=== PATIENT | female | born 1945 | race Caucasian/White ===

== ENCOUNTER 2017-12-28 15:09 | Emergency (ER) | payer MEDICARE, OTHER ==
[~2017-12-28] VITALS: Ht 160 cm; Wt 58.0 kg
[2017-12-28] MEDS ORDERED: morphine 4 MG/ML inj SYRINge IV ONE (15:20)
[2017-12-28] MEDS ORDERED: nitroGLYCERIN 0.4mg SUBLingual tab SL PRN (15:20)
[2017-12-28 15:41] LABS: BASOPHILS # (AUTO) 0.1 X10'3 (0-0.2); BASOPHILS % (AUTO) 1.9 % (0-1); EOSINOPHILS # (AUTO) 0.1 X10'3 (0-0.9); EOSINOPHILS % (AUTO) 2.8 % (0-6); HEMOGLOBIN 14.6 g/dl (12.0-16.0); LYMPHOCYTES # (AUTO) 2.3 X10'3 (1.1-4.8); LYMPHOCYTES % (AUTO) 46.3 % (21-51); MEAN CORPUSCULAR HEMOGLOBIN 31.5 PG (27.0-31.0); MEAN CORPUSCULAR HGB CONC 34.7 % (33.0-36.5); MEAN CORPUSCULAR VOLUME 90.8 FL (78-98); MEAN PLATELET VOLUME 7.4 FL (7.4-10.4); MONOCYTES # (AUTO) 0.5 X10'3 (0-0.9); MONOCYTES % (AUTO) 10.5 % (2-12); NEUTROPHILS # (AUTO) 1.9 X10'3 (1.8-7.7); NEUTROPHILS % (AUTO) 38.5 % (42-75); PLATELET COUNT 265 X10'3 (140-440); RED BLOOD COUNT 4.63 X10'6 (4.20-5.60); RED CELL DISTRIBUTION WIDTH 13.1 % (11.5-14.5); WHITE BLOOD COUNT 4.9 X10'3 (4.5-11.0)
[2017-12-28 16:04] LABS: ALANINE AMINOTRANSFERASE 21 U/L (12-78); ALBUMIN 4.2 G/DL (3.4-5.0); ALBUMIN/GLOBULIN RATIO 1.1 (1.1-1.5); ALKALINE PHOSPHATASE 73 IU/L (46-116); ANION GAP 9 (8-16); ASPARTATE AMINO TRANSFERASE 20 U/L (10-37); BILIRUBIN,TOTAL 0.3 MG/DL (0.1-1.0); BLOOD UREA NITROGEN 9 MG/DL (7-18); BUN/CREATININE RATIO 13.4 (6.6-38.0); CALCIUM 10.3 MG/DL (8.5-10.1); CHLORIDE 93 MMOL/L (99-107); CREATININE 0.67 MG/DL (0.40-0.90); GLUCOSE 99 MG/DL (70-104); SODIUM 131 MMOL/L (135-145); TOTAL CARBON DIOXIDE 28.9 MMOL/L (24-32); TOTAL PROTEIN 7.9 G/DL (6.4-8.2); eGFR 87 ML/MIN
[2017-12-28] MEDS ORDERED: normal saline 1000ML IV soln IVB ONE (16:35)
[2017-12-28] MEDS ORDERED: NITR0.4T51 SL (16:46)
[2017-12-28] MEDS: ondansetron/PF 4mg/2ml inj IV ONE ×2 (17:01→17:03)
[2017-12-28] MEDS: famotidine/PF 10 mg/ml inj IV ONE ×2 (17:01→17:03)
[2017-12-28 17:50] VITALS: BP 171/91
== END 2017-12-28 17:51 | disposition home or self-care (01) ==
LOC: ER 15:09
DX: I20.9 Angina pectoris, unspecified (principal); R10.13 Epigastric pain; R07.89 Other chest pain; I48.91 Unspecified atrial fibrillation; I25.2 Old myocardial infarction; M81.0 Age-related osteoporosis without current pathological fracture; Z88.8 Allergy status to other drugs, medicaments and biological substances; Z88.6 Allergy status to analgesic agent; Z88.5 Allergy status to narcotic agent
CPT/HCPCS: 36415; 71045; 80053; 83880; 84484; 85025; 85610; 93005; 96374; 99285; J2270; J3490; J7030; J2405

== ENCOUNTER 2021-09-22 10:29 | Emergency (ER) | payer MEDICARE, OTHER ==
[~2021-09-22] VITALS: Ht 160 cm; Wt 42.7 kg
[2021-09-22] MEDS ORDERED: LIDOcaine 5% patch TP STA (11:41)
[2021-09-22] MEDS ORDERED: BUPIVAcaine/PF 7.5 mg/ml (0.75%) 30ml vial IJ ONE (11:45)
[2021-09-22 12:11] VITALS: BP 163/96
== END 2021-09-22 12:27 | disposition home or self-care (01) ==
LOC: ER 10:30
DX: G89.29 Other chronic pain (principal); M54.50 Low back pain, unspecified; M81.0 Age-related osteoporosis without current pathological fracture; I48.91 Unspecified atrial fibrillation; I25.2 Old myocardial infarction; Z98.82 Breast implant status; Z88.8 Allergy status to other drugs, medicaments and biological substances
CPT/HCPCS: 20552; 99284

== ENCOUNTER 2021-12-19 14:24 | Inpatient (IN) | payer MEDICARE, OTHER ==
[~2021-12-19] VITALS: Ht 160 cm; Wt 40.9 kg
[2021-12-19 15:20] LABS: BASOPHILS # (AUTO) 0.1 X10'3 (0-0.2); BASOPHILS % (AUTO) 0.9 % (0-1); EOSINOPHILS % (AUTO) 0.3 % (0-6); HEMATOCRIT 40.8 % (35.0-45.0); HEMOGLOBIN 13.9 g/dl (12.0-16.0); LYMPHOCYTES # (AUTO) 1.6 X10'3 (1.1-4.8); LYMPHOCYTES % (AUTO) 26.7 % (21-51); MEAN CORPUSCULAR HEMOGLOBIN 30.2 PG (27.0-31.0); MEAN CORPUSCULAR HGB CONC 34.1 g/dL (33.0-36.5); MEAN CORPUSCULAR VOLUME 88.8 FL (78-98); MEAN PLATELET VOLUME 8.3 FL (7.4-10.4); MONOCYTES # (AUTO) 0.6 X10'3 (0-0.9); MONOCYTES % (AUTO) 9.8 % (2-12); NEUTROPHILS # (AUTO) 3.8 X10'3 (1.8-7.7); NEUTROPHILS % (AUTO) 62.3 % (42-75); PLATELET COUNT 288 X10'3 (140-440); RED CELL DISTRIBUTION WIDTH 14.2 % (11.5-14.5); WHITE BLOOD COUNT 6.1 X10'3 (4.5-11.0)
[2021-12-19] MEDS ORDERED: acetaminophen 325mg tablet PO ONE (15:25)
[2021-12-19 15:30] LABS: ALANINE AMINOTRANSFERASE 35 U/L (12-78); ALBUMIN/GLOBULIN RATIO 1.2 (1.1-1.5); ALKALINE PHOSPHATASE 90 IU/L (46-116); ANION GAP 11 (8-16); ASPARTATE AMINO TRANSFERASE 22 U/L (10-37); BILIRUBIN,TOTAL 0.6 MG/DL (0.1-1.0); BLOOD UREA NITROGEN 14 MG/DL (7-18); BUN/CREATININE RATIO 16.9 (6.6-38.0); CALCIUM 9.3 MG/DL (8.5-10.1); CHLORIDE 94 MMOL/L (99-107); CREATININE 0.83 MG/DL (0.40-0.90); GLUCOSE 120 MG/DL (70-104); SODIUM 131 MMOL/L (135-145); TOTAL CARBON DIOXIDE 26.4 MMOL/L (24-32); TOTAL PROTEIN 7.4 G/DL (6.4-8.2); eGFR 67 ML/MIN
[2021-12-19 15:31] LABS: D-DIMER 0.88 MG/L FEU (0-0.50)
[2021-12-19] MEDS ORDERED: furosemide 10 MG/1 ML 10ml inj IV ONE (15:45)
[2021-12-19] MEDS ORDERED: potassium CL 10mEq/100ml bag 100 ML IV PRN (16:05)
[2021-12-19] MEDS ORDERED: ondansetron/PF 4mg/2ml inj IV PRN (16:05)
[2021-12-19] MEDS ORDERED: magnesium 4gm in 100ml NS 100 ML IV PRN (16:05)
[2021-12-19] MEDS ORDERED: mag hydrox/Alum hydrox/simeth 30ml oral suspension PO PRN (16:05)
[2021-12-19] MEDS ORDERED: magnesium Cl slow-release 64mg tablet PO PRN (16:05)
[2021-12-19] MEDS ORDERED: PERFLUTREN PROTEIN-A MICROSPHR (Optison) 0.22 MG/ML 3ML VIAL IV ONE (16:05)
[2021-12-19] MEDS ORDERED: magnesium hydroxide 30ml (MOM) UD suspension PO PRN (16:05)
[2021-12-19] MEDS ORDERED: acetaminophen 325mg tablet PO PRN (16:05)
[2021-12-19] MEDS ORDERED: magnesium 2GM in 50ml NS 50 ML IV PRN (16:05)
[2021-12-19 17:41] LABS: POTASSIUM 3.9 MMOL/L (3.5-5.1)
[2021-12-19] MEDS ORDERED: ISOT20CA3 PO (18:14)
[2021-12-19] MEDS ORDERED: DIAZ2TAB3 PO (18:17)
[2021-12-19] MEDS ORDERED: NITR4.9S4 PO (18:17)
[2021-12-19] MEDS ORDERED: APIX5TAB3 PO (18:17)
[2021-12-19] MEDS: metoprolol tartrate 1mg/ml inj IV SCH ×3 (18:20→19:46)
[2021-12-19] MEDS ORDERED: GABA-581 PO (18:24)
[2021-12-19] MEDS ORDERED: TRAM50TA2 PO (18:25)
[2021-12-19] MEDS ORDERED: DIAZ10TA4 PO (18:26)
--- NOTE | 2021-12-19 19:23 | NUR ---
assisting primary RN with pt care, pt stated she is "no code...DNR...I have paperwork", pt is GCS 15, alert and oriented x3, Dr Lafleur aware and talked with pt regarding code status. pt also stated she takes levothyroxine from [facility] in [place] [id number] [phone]
[2021-12-19] MEDS ORDERED: LEVO88CA4 PO (19:36)
[2021-12-19] MEDS: apixaban 5mg tablet PO SCH (19:45)
[2021-12-19] MEDS: docusate sod 100mg capsule PO SCH (19:45)
[2021-12-19] MEDS: furosemide 10 MG/1 ML 10ml inj IV SCH (19:46)
[2021-12-19] MEDS: K and/or MAG REPLACEMENT MC SCH (20:00)
[2021-12-19] MEDS: metoprolol tartrate 50mg tablet PO SCH (20:01)
[2021-12-19] MEDS ORDERED: diazepam 5mg tablet PO ONE (20:10)
[2021-12-19] MEDS ORDERED: traMADol 50MG tablet PO ONE (20:10)
[2021-12-19 22:00] VITALS: BP 123/89
[2021-12-20 02:00] VITALS: BP 118/78
[2021-12-20 06:00] VITALS: BP 108/76
--- NOTE | 2021-12-20 06:30 | NUR ---
Patient in room PCU 3024. I have received report from KAYCE Paulino and had the opportunity to ask questions and assume patient care.
[2021-12-20 06:38] LABS: BASOPHILS # (AUTO) 0.1 X10'3 (0-0.2); BASOPHILS % (AUTO) 1.1 % (0-1); EOSINOPHILS # (AUTO) 0.1 X10'3 (0-0.9); EOSINOPHILS % (AUTO) 1.5 % (0-6); HEMATOCRIT 37.7 % (35.0-45.0); HEMOGLOBIN 13.1 g/dl (12.0-16.0); LYMPHOCYTES # (AUTO) 1.7 X10'3 (1.1-4.8); MEAN CORPUSCULAR HEMOGLOBIN 30.2 PG (27.0-31.0); MEAN CORPUSCULAR HGB CONC 34.8 g/dL (33.0-36.5); MEAN CORPUSCULAR VOLUME 86.9 FL (78-98); MEAN PLATELET VOLUME 8.2 FL (7.4-10.4); MONOCYTES # (AUTO) 0.6 X10'3 (0-0.9); MONOCYTES % (AUTO) 13.2 % (2-12); NEUTROPHILS # (AUTO) 2.3 X10'3 (1.8-7.7); NEUTROPHILS % (AUTO) 48.2 % (42-75); PLATELET COUNT 248 X10'3 (140-440); RED BLOOD COUNT 4.34 X10'6 (4.20-5.60); RED CELL DISTRIBUTION WIDTH 13.7 % (11.5-14.5); WHITE BLOOD COUNT 4.8 X10'3 (4.5-11.0)
--- NOTE | 2021-12-20 06:43 | NUR ---
Problems reprioritized. Patient report given, questions answered & plan of care reviewed with zachary.
[2021-12-20 07:03] LABS: ALANINE AMINOTRANSFERASE 30 U/L (12-78); ALBUMIN 3.3 G/DL (3.4-5.0); ALBUMIN/GLOBULIN RATIO 1.1 (1.1-1.5); ALKALINE PHOSPHATASE 75 IU/L (46-116); ANION GAP 6 (8-16); ASPARTATE AMINO TRANSFERASE 25 U/L (10-37); BILIRUBIN,TOTAL 0.5 MG/DL (0.1-1.0); BLOOD UREA NITROGEN 12 MG/DL (7-18); BUN/CREATININE RATIO 14.6 (6.6-38.0); CALCIUM 8.5 MG/DL (8.5-10.1); CHLORIDE 97 MMOL/L (99-107); CREATININE 0.82 MG/DL (0.40-0.90); GLUCOSE 86 MG/DL (70-104); MAGNESIUM 1.8 MG/DL (1.5-2.4); POTASSIUM 3.5 MMOL/L (3.5-5.1); SODIUM 135 MMOL/L (135-145); TOTAL CARBON DIOXIDE 31.7 MMOL/L (24-32); TOTAL PROTEIN 6.4 G/DL (6.4-8.2); eGFR 68 ML/MIN
[2021-12-20] MEDS: K and/or MAG REPLACEMENT MC SCH ×2 (08:00→20:00)
[2021-12-20] MEDS: metoprolol tartrate 50mg tablet PO SCH (08:42)
[2021-12-20] MEDS: docusate sod 100mg capsule PO SCH ×2 (08:42→20:16)
[2021-12-20] MEDS: apixaban 5mg tablet PO SCH ×2 (08:42→20:16)
[2021-12-20] MEDS: furosemide 10 MG/1 ML 10ml inj IV SCH ×2 (08:43→20:18)
[2021-12-20 11:00] VITALS: BP 130/83
[2021-12-20] MEDS ORDERED: NITROGLYCERIN PO PRN (11:20)
--- NOTE | 2021-12-20 12:23 | NUR ---
Malnutrition consult: Pt reports 2-13 lb wt loss with decreased appetite per malnutrition risk screen with RN. Most recent documented wt in EMR is 42.73 kg 09/22, current wt is 40.91 kg though no documentation of how either wt was obtained. If weights are accurate this would be non-significant wt loss of 4% in three months. Pending documentation of PO intake on CHO controlled diet. TC to RN with recommendation for liberalizing to regular diet given pt with no PMH of DM or an A1c per EMR. Pt with no documented significant decrease in muscle strength or edema. Per physician notes pt appears well developed and denies N/V. Pt currently lacks a minimum of two criteria for malnutrition. Will continue to follow. Addendum: 12/20/21 at [address] Amended: Links added.
[2021-12-20 14:51] LABS: CHOLESTEROL 168 MG/DL (0-200); HDL CHOLESTEROL 56 MG/DL (35-60); LDL CHOLESTEROL 99 MG/DL (50-100); TRIGLYCERIDES 38 MG/DL (20-135)
[2021-12-20 15:00] VITALS: BP 109/65
[2021-12-20] MEDS ORDERED: CARV6.253 PO (15:46)
[2021-12-20 18:00] VITALS: BP 130/86
--- NOTE | 2021-12-20 18:36 | NUR ---
Problems reprioritized. Patient report given, questions answered & plan of care reviewed with KELLY Palmer. Addendum: 12/20/21 at 1838 by Jane Frye RN Problems reprioritized. Patient report given, questions answered & plan of care reviewed with KELLY Matthews.
[2021-12-20] MEDS: diazepam 5mg tablet PO SCH (20:17)
[2021-12-20] MEDS: traMADol 50MG tablet PO SCH (20:21)
[2021-12-20] MEDS: carVEDilol 3.125mg tablet PO SCH (20:22)
[2021-12-20] MEDS ORDERED: GABAPENTIN 600 MG PO SCH (21:00)
[2021-12-20 22:00] VITALS: BP 106/58
[2021-12-20] MEDS: gabapentin 100mg capsule PO SCH (22:34)
[2021-12-21 06:00] VITALS: BP 111/64
[2021-12-21 07:05] LABS: BASOPHILS # (AUTO) 0.1 X10'3 (0-0.2); BASOPHILS % (AUTO) 1.1 % (0-1); EOSINOPHILS # (AUTO) 0.1 X10'3 (0-0.9); EOSINOPHILS % (AUTO) 1.2 % (0-6); HEMATOCRIT 39.8 % (35.0-45.0); HEMOGLOBIN 13.4 g/dl (12.0-16.0); LYMPHOCYTES # (AUTO) 1.2 X10'3 (1.1-4.8); LYMPHOCYTES % (AUTO) 19.2 % (21-51); MEAN CORPUSCULAR HEMOGLOBIN 29.6 PG (27.0-31.0); MEAN CORPUSCULAR HGB CONC 33.6 g/dL (33.0-36.5); MEAN CORPUSCULAR VOLUME 88.2 FL (78-98); MEAN PLATELET VOLUME 8.7 FL (7.4-10.4); MONOCYTES # (AUTO) 0.6 X10'3 (0-0.9); MONOCYTES % (AUTO) 9.9 % (2-12); NEUTROPHILS # (AUTO) 4.5 X10'3 (1.8-7.7); NEUTROPHILS % (AUTO) 68.6 % (42-75); PLATELET COUNT 260 X10'3 (140-440); RED BLOOD COUNT 4.51 X10'6 (4.20-5.60); RED CELL DISTRIBUTION WIDTH 13.7 % (11.5-14.5); WHITE BLOOD COUNT 6.5 X10'3 (4.5-11.0)
[2021-12-21 07:19] LABS: ALANINE AMINOTRANSFERASE 29 U/L (12-78); ALBUMIN 3.5 G/DL (3.4-5.0); ALBUMIN/GLOBULIN RATIO 1.2 (1.1-1.5); ALKALINE PHOSPHATASE 74 IU/L (46-116); ANION GAP 12 (8-16); ASPARTATE AMINO TRANSFERASE 22 U/L (10-37); BILIRUBIN,TOTAL 0.5 MG/DL (0.1-1.0); BLOOD UREA NITROGEN 17 MG/DL (7-18); BUN/CREATININE RATIO 20.5 (6.6-38.0); CALCIUM 8.6 MG/DL (8.5-10.1); CHLORIDE 96 MMOL/L (99-107); CREATININE 0.83 MG/DL (0.40-0.90); GLUCOSE 81 MG/DL (70-104); SODIUM 137 MMOL/L (135-145); TOTAL CARBON DIOXIDE 29.2 MMOL/L (24-32); TOTAL PROTEIN 6.5 G/DL (6.4-8.2); eGFR 67 ML/MIN
[2021-12-21] MEDS: docusate sod 100mg capsule PO SCH ×2 (07:48→20:38)
[2021-12-21] MEDS: gabapentin 100mg capsule PO SCH ×3 (07:48→20:40)
[2021-12-21] MEDS: carVEDilol 3.125mg tablet PO SCH ×2 (07:49→20:40)
[2021-12-21] MEDS: apixaban 5mg tablet PO SCH ×2 (07:49→20:40)
[2021-12-21] MEDS: losartan 25mg tablet PO SCH (07:50)
[2021-12-21] MEDS: levoTHYROXINE 88mcg tablet PO SCH (07:50)
[2021-12-21] MEDS: furosemide 10 MG/1 ML 10ml inj IV SCH ×2 (07:50→21:23)
[2021-12-21] MEDS: POTASSIUM BICARB 20meq eff tab 20 MEQ TABLET.EFF PO PRN ×5 (07:51→17:50)
[2021-12-21] MEDS: aspirin 81mg tab.chew PO SCH (07:52)
[2021-12-21] MEDS: K and/or MAG REPLACEMENT MC SCH ×2 (08:04→20:00)
[2021-12-21] MEDS: diazepam 2mg tablet PO SCH (10:59)
[2021-12-21 11:00] VITALS: BP 110/72
[2021-12-21 15:00] VITALS: BP 97/60
[2021-12-21 18:00] VITALS: BP 132/83
--- NOTE | 2021-12-21 18:14 | NUR ---
Patient in room PCU 3024. I have received report from Eufemia MENDOZA and had the opportunity to ask questions and assume patient care.
[2021-12-21] MEDS: diazepam 5mg tablet PO SCH (20:40)
[2021-12-21] MEDS: traMADol 50MG tablet PO SCH (20:42)
[2021-12-21 22:00] VITALS: BP 111/68
[2021-12-22 02:00] VITALS: BP 79/56
[2021-12-22 06:00] VITALS: BP 90/48
--- NOTE | 2021-12-22 06:44 | NUR ---
Problems reprioritized. Patient report given, questions answered & plan of care reviewed with Tracee MENDOZA.
--- NOTE | 2021-12-22 06:48 | NUR ---
REVIEWED [employer] ASSESSMENT AND IN AGREEMENT.
[2021-12-22 07:27] LABS: BASOPHILS # (AUTO) 0.1 X10'3 (0-0.2); BASOPHILS % (AUTO) 1.3 % (0-1); EOSINOPHILS # (AUTO) 0.1 X10'3 (0-0.9); EOSINOPHILS % (AUTO) 2.2 % (0-6); HEMATOCRIT 40.3 % (35.0-45.0); HEMOGLOBIN 13.8 g/dl (12.0-16.0); LYMPHOCYTES % (AUTO) 34.6 % (21-51); MEAN CORPUSCULAR HEMOGLOBIN 30.1 PG (27.0-31.0); MEAN CORPUSCULAR HGB CONC 34.1 g/dL (33.0-36.5); MEAN CORPUSCULAR VOLUME 88.3 FL (78-98); MEAN PLATELET VOLUME 8.5 FL (7.4-10.4); MONOCYTES # (AUTO) 0.7 X10'3 (0-0.9); MONOCYTES % (AUTO) 11.8 % (2-12); NEUTROPHILS # (AUTO) 2.9 X10'3 (1.8-7.7); NEUTROPHILS % (AUTO) 50.1 % (42-75); PLATELET COUNT 248 X10'3 (140-440); RED BLOOD COUNT 4.57 X10'6 (4.20-5.60); RED CELL DISTRIBUTION WIDTH 13.6 % (11.5-14.5); WHITE BLOOD COUNT 5.8 X10'3 (4.5-11.0)
[2021-12-22 07:48] LABS: ALANINE AMINOTRANSFERASE 23 U/L (12-78); ALBUMIN 3.6 G/DL (3.4-5.0); ALBUMIN/GLOBULIN RATIO 1.2 (1.1-1.5); ALKALINE PHOSPHATASE 72 IU/L (46-116); ANION GAP 11 (8-16); ASPARTATE AMINO TRANSFERASE 19 U/L (10-37); BILIRUBIN,TOTAL 0.5 MG/DL (0.1-1.0); BLOOD UREA NITROGEN 19 MG/DL (7-18); BUN/CREATININE RATIO 21.8 (6.6-38.0); CALCIUM 9.1 MG/DL (8.5-10.1); CHLORIDE 93 MMOL/L (99-107); CREATININE 0.87 MG/DL (0.40-0.90); GLUCOSE 76 MG/DL (70-104); SODIUM 138 MMOL/L (135-145); TOTAL CARBON DIOXIDE 33.6 MMOL/L (24-32); TOTAL PROTEIN 6.6 G/DL (6.4-8.2); eGFR 64 ML/MIN
[2021-12-22] MEDS: K and/or MAG REPLACEMENT MC SCH (08:00)
[2021-12-22] MEDS: gabapentin 100mg capsule PO SCH ×2 (08:00→13:00)
[2021-12-22] MEDS ORDERED: ISOTRETINOIN PO SCH (08:00)
[2021-12-22] MEDS: losartan 25mg tablet PO SCH ×2 (08:00→09:18)
[2021-12-22 08:50] VITALS: BP 107/57
[2021-12-22] MEDS: apixaban 5mg tablet PO SCH (09:07)
[2021-12-22] MEDS: carVEDilol 3.125mg tablet PO SCH (09:07)
[2021-12-22] MEDS: diazepam 2mg tablet PO SCH (09:08)
[2021-12-22] MEDS: aspirin 81mg tab.chew PO SCH (09:08)
[2021-12-22] MEDS: docusate sod 100mg capsule PO SCH (09:08)
[2021-12-22] MEDS: furosemide 10 MG/1 ML 10ml inj IV SCH (09:08)
[2021-12-22] MEDS: levoTHYROXINE 88mcg tablet PO SCH (09:08)
[2021-12-22 11:00] VITALS: BP 107/76
[2021-12-22] MEDS ORDERED: FURO-150 PO (12:34)
[2021-12-22] MEDS ORDERED: POTA-206 PO (12:34)
[2021-12-22 15:00] VITALS: BP 126/86
--- NOTE | 2021-12-22 16:52 | NUR ---
Pt discharged home with friend Tip who will be staying with her for the week to
[2021-12-22] MEDS ORDERED: LOSA25TA96 PO (17:48)
[2021-12-22] MEDS ORDERED: ALB0.5UD IH (17:48)
[2021-12-22] MEDS ORDERED: CARV3.12 PO (17:48)
--- NOTE | 2021-12-22 20:10 | NUR ---
Pt discharged home with friend Tip who will be staying with her for the week to help her. Home health and home Phys therapy will be needed and Uma from case [facility] will arrange along with referral to [facility] on wheels. Pt education on heart failure and given a lot of education as this is new to her and told to follow up faith with Dr Castro and pcp. IV taken out, tele dcd. All belonging taken from room. No meds in pharmacy. Pt feels appropriate to go home now that she has friend Tip to care for her. Pt instructed on importance of taking new meds for heart failure and monitoring blood pressure and daily weights along with a low sodium diet. Pt instructed to call 911 and go to nearest ER if symptoms worsen
== END 2021-12-22 16:55 | disposition home or self-care (01) | DRG 308 ==
LOC: ER 14:24 → ED HOLD 16:22 → PCU 3S 21:40
PROVIDERS: ADMIT Family Medicine; ATTEND Family Medicine
DX: I48.91 Unspecified atrial fibrillation (principal); I50.23 Acute on chronic systolic (congestive) heart failure; I11.0 Hypertensive heart disease with heart failure; Z20.822 Contact with and (suspected) exposure to COVID-19; E03.9 Hypothyroidism, unspecified; F32.A Depression, unspecified; Z66 Do not resuscitate; F41.9 Anxiety disorder, unspecified; G24.9 Dystonia, unspecified; G89.29 Other chronic pain; I25.119 Atherosclerotic heart disease of native coronary artery with unspecified angina pectoris; J44.9 Chronic obstructive pulmonary disease, unspecified; M79.7 Fibromyalgia; M81.0 Age-related osteoporosis without current pathological fracture; I25.2 Old myocardial infarction; Z79.01 Long term (current) use of anticoagulants; Z90.710 Acquired absence of both cervix and uterus; Z98.82 Breast implant status; Z88.8 Allergy status to other drugs, medicaments and biological substances
CPT/HCPCS: 36415; 71045; 80053; 80061; 83735; 83880; 84132; 84484; 85025; 85379; 87081; 93005; 93306; 96374; 97116; 97161; 97530; 99285; A4615; G0378; J1940; J3490